=== PATIENT | male | born 2000 | race Two or more races ===

== ENCOUNTER 2022-10-19 19:18 | Emergency (ER) | payer SELFPAY ==
[~2022-10-19] VITALS: Ht 165.1 cm; Wt 69.8 kg
[2022-10-19 22:01] LABS: BASOPHILS % 0.6 % (0.0-2.0); EOSINOPHILS % 1.7 % (0.0-5.0); HEMATOCRIT. 43.6 % (42.0-52.0); HEMOGLOBIN. 15.5 g/dL (14.0-18.0); LYMPHOCYTES % 25.1 % (20.0-50.0); MEAN CORPUSCULAR HEMOGLOBIN 32.1 pg (28.0-32.0); MEAN CORPUSCULAR VOLUME 90.1 fL (80.0-94.0); MONOCYTES % 11.4 % (2.0-8.0); NEUTROPHILS % 61.2 % (40.0-76.0); PLATELET 180 x1000/uL (130-400); RED BLOOD CELL COUNT 4.84 mill/uL (4.7-6.1); RED CELL DISTRIBUTION WIDTH 12.4 % (11.6-14.6)
[2022-10-19 23:16] VITALS: BP 122/81
== END 2022-10-19 23:18 | disposition home or self-care (01) ==
LOC: ER 20:27
DX: R04.0 Epistaxis (principal)
CPT/HCPCS: 36415; 85025; 99283